=== PATIENT | female | born 1970 | race American Indian/Alaskan Native ===

== ENCOUNTER 2020-05-06 11:32 | Emergency (ER) | payer OTHER ==
--- NOTE | 2020-05-06 11:53 | Emergency Department Report ---
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 She states she felt hot all over and then had a syncopal episode. She has been having persistent nausea for the last week. This morning she had one episode of vomiting and took Zofran 8 mg ODT. She denies headache, palpitations, blurred vision, chest pain, shortness of breath, focal weakness, focal numbness, calf tenderness, leg edema, history of PE/DVT. Patient did travel to [place] several weeks ago. Her medications include Cymbalta, lisinopril/HCTZ, aspirin 81 mg daily, atorvastatin, and Ozempic. - Related Data Allergies/Adverse Reactions: Allergies erythromycin base [From Erythrocin] Allergy (Verified 05/06/20 12:11) Nausea hydromorphone [From Dilaudid] Allergy (Verified 05/06/20 12:10) Shortness of Breath Home Medications: Ambulatory Orders Promethazine [Phenergan] 25 mg PO Q6HR PRN #20 tab 05/06/20 ED Review of Systems ROS: Stated complaint: SYNCOPE Other details as noted in HPI Comment: All other systems reviewed and negative ED Past Medical Hx - Medications Home Medications: Home Medications Medication Instructions Recorded Confirmed Last Taken Type Promethazine [Phenergan] 25 mg PO Q6HR PRN #20 tab 05/06/20 Unknown Rx ED Physical Exam - Other Other exam information: General: No acute distress Head: Atraumatic Eyes: normal appearance, extraocular movements intact ENT: Moist mucous membranes Neck: Normal appearance, no midline tenderness Chest: Clear to auscultation bilaterally CV: Regular rate and rhythm Abdomen: Soft, normal bowel sounds, nontender, nondistended, no rebound or guarding Back: Normal inspection, no calf tenderness or leg edema Extremity: Normal inspection, full range of motion Neuro: Alert O x 3, no facial asymmetry, speech clear, no gross motor sensory deficit, [id number] function. NIH stroke scale 0 Psych: Appropriate behavior Skin: No rash ED Course Vital Signs 05/06/20 05/06/20 05/06/20 11:45 11:52 11:59 Temperature 98.3 F Pulse Rate 82 114 H Respiratory 20 16 18 Rate Blood Pressure 131/77 Blood Pressure 131/77 [Right] O2 Sat by Pulse 100 100 Oximetry 05/06/20 05/06/20 05/06/20 12:00 12:16 12:30 Temperature Pulse Rate 65 72 85 Respiratory 15 12 20 Rate Blood Pressure 132/80 123/80 123/80 Blood Pressure [Right] O2 Sat by Pulse 100 99 100 Oximetry 05/06/20 05/06/20 05/06/20 12:46 13:00 13:16 Temperature Pulse Rate 73 73 81 Respiratory 17 18 12 Rate Blood Pressure 123/80 123/80 113/65 Blood Pressure [Right] O2 Sat by Pulse 100 99 99 Oximetry 05/06/20 05/06/20 05/06/20 13:30 13:46 14:00 Temperature Pulse Rate 75 73 75 Respiratory 16 17 14 Rate Blood Pressure 113/65 113/65 113/65 Blood Pressure [Right] O2 Sat by Pulse 100 77 L 99 Oximetry ED Medical Decision Making - Lab Data Result diagrams: 05/06/20 Unknown 05/06/20 12:28 Lab Results 05/06/20 05/06/20 05/06/20 Range/Units 11:43 12:28 12:28 WBC (4.5-11.0) K/mm3 RBC (3.65-5.03) M/mm3 Hgb (10.1-14.3) gm/dl Hct (30.3-42.9) % MCV (79-97) fl MCH (28-32) pg MCHC (30-34) % RDW (13.2-15.2) % Plt Count (140-440) K/mm3 Lymph % (Auto) (13.4-35.0) % Lassen % (Auto) (0.0-7.3) % Eos % (Auto) (0.0-4.3) % Baso % (Auto) (0.0-1.8) % Lymph # (Auto) (1.2-5.4) K/mm3 Lassen # (Auto) (0.0-0.8) K/mm3 Eos # (Auto) (0.0-0.4) K/mm3 Baso # (Auto) (0.0-0.1) K/mm3 Seg Neutrophils % (40.0-70.0) % Seg Neutrophils # (1.8-7.7) K/mm3 PT 12.2 (12.2-14.9) Sec. INR 0.91 (0.87-1.13) D-Dimer < 135 (0-234) ng/mlDDU Sodium 137 (137-145) mmol/L Potassium 4.3 (3.6-5.0) mmol/L Chloride 102.5 (98-107) mmol/L Carbon Dioxide 29 (22-30) mmol/L Anion Gap 10 mmol/L BUN 10 (7-17) mg/dL Creatinine 0.7 (0.6-1.2) mg/dL Estimated GFR > 60 ml/min BUN/Creatinine Ratio 14 % Glucose 102 H (65-100) mg/dL POC Glucose 114 H (70-105) mg/dL Calcium 9.5 (8.4-10.2) mg/dL Troponin T < 0.010 (0.00-0.029) ng/mL HCG, Qual (Negative) 05/06/20 05/06/20 Range/Units 12:28 Unknown WBC 7.1 (4.5-11.0) K/mm3 RBC 4.28 (3.65-5.03) M/mm3 Hgb 13.1 (10.1-14.3) gm/dl Hct 38.5 (30.3-42.9) % MCV 90 (79-97) fl MCH 31 (28-32) pg MCHC 34 (30-34) % RDW 13.6 (13.2-15.2) % Plt Count 216 (140-440) K/mm3 Lymph % (Auto) 22.9 (13.4-35.0) % Lassen % (Auto) 6.6 (0.0-7.3) % Eos % (Auto) 6.3 H (0.0-4.3) % Baso % (Auto) 0.6 (0.0-1.8) % Lymph # (Auto) 1.6 (1.2-5.4) K/mm3 Lassen # (Auto) 0.5 (0.0-0.8) K/mm3 Eos # (Auto) 0.4 (0.0-0.4) K/mm3 Baso # (Auto) 0.0 (0.0-0.1) K/mm3 Seg Neutrophils % 63.6 (40.0-70.0) % Seg Neutrophils # 4.5 (1.8-7.7) K/mm3 PT (12.2-14.9) Sec. INR (0.87-1.13) D-Dimer (0-234) ng/mlDDU Sodium (137-145) mmol/L Potassium (3.6-5.0) mmol/L Chloride (98-107) mmol/L Carbon Dioxide (22-30) mmol/L Anion Gap mmol/L BUN (7-17) mg/dL Creatinine (0.6-1.2) mg/dL Estimated GFR ml/min BUN/Creatinine Ratio % Glucose (65-100) mg/dL POC Glucose (70-105) mg/dL Calcium (8.4-10.2) mg/dL Troponin T (0.00-0.029) ng/mL HCG, Qual Negative (Negative) - EKG Data -: EKG Interpreted by [facility] EKG shows normal: sinus rhythm, ST-T waves (no stemi) Rate: normal - EKG Data When compared to previous EKG there are: previous EKG unavailable - Radiology Data Radiology results: report reviewed CHEST 1 VIEW INDICATION / CLINICAL INFORMATION: Syncope. COMPARISON: None available. FINDINGS: SUPPORT DEVICES: None. HEART / MEDIASTINUM: No significant abnormality. LUNGS / PLEURA: No significant pulmonary or pleural abnormality.. No pneumothorax. ADDITIONAL FINDINGS: No significant additional findings. IMPRESSION: 1. No acute findings. CT BRAIN: 05/06/2020 INDICATION / CLINICAL INFORMATION: syncope. COMPARISON: None available. FINDINGS: BRAIN/INTRACRANIAL STRUCTURES: Unenhanced CT images of the brain demonstrate no evidence of acute intracranial abnormality. Ventricles and sulci are normal in size and shape. There is no evidence of acute ischemic injury, hemorrhage, or mass. There are no abnormal extra- axial fluid collections. EXTRACRANIAL STRUCTURES: Unremarkable. IMPRESSION: Negative unenhanced CT of the brain. - Medical Decision Making 49-year-old female presents to the hospital with syncopal episode. Patient states she felt lightheaded and hot prior to syncopal episode without any other symptoms. Symptoms appear to be vasovagal. ED work-up revealed normal EKG without ischemic findings or arrhythmia, negative D-dimer but low pretest probability for pulmonary embolism, normal vital signs with negative orthostatics, and no signs of acute infection or other lab abnormality. CT head also unremarkable with nonfocal neurologic exam. patient received additional medication for persistent nausea without vomiting. Patient tolerated ambulation the ED prior to discharge. She be discharged with PMD follow-up Patient treated in the ED with Reglan, Benadryl, and 1 L normal saline Critical Care Time: No Critical care attestation.: If time is entered above; I have spent that time in minutes in the direct care of this critically ill patient, excluding procedure time. ED Disposition Clinical Impression: Syncope, Lupus, History of CVA (cerebrovascular accident) without residual deficits, Diabetes, Hypertension, Nausea Disposition: - TO HOME OR SELFCARE Is pt being admited?: No Does the pt Need Aspirin: No Condition: Stable Instructions: Syncope (ED), Diabetes Mellitus Type 2 in Adults (ED), Hypertension (ED) Additional Instructions: Take the medication as prescribed. Follow-up with your doctor or doctor/clinic provided. Return if symptoms worsen as indicated by your discharge instructions. Prescriptions: Promethazine [Phenergan] 25 mg PO Q6HR PRN #20 tab PRN Reason: Nausea Referrals: SUSHANT MEDEL MD [Primary Care Provider] - 3-5 Days Time of Disposition: 17:13 Medical Decision Making - Lab Data Result Diagrams: 05/06/20 Unknown 05/06/20 12:28 Labs: 05/06/20 17:10 Lab Results 05/06/20 05/06/20 05/06/20 Range/Units 11:43 12:28 12:28 WBC (4.5-11.0) K/mm3 RBC (3.65-5.03) M/mm3 Hgb (10.1-14.3) gm/dl Hct (30.3-42.9) % MCV (79-97) fl MCH (28-32) pg MCHC (30-34) % RDW (13.2-15.2) % Plt Count (140-440) K/mm3 Lymph % (Auto) (13.4-35.0) % Lassen % (Auto) (0.0-7.3) % Eos % (Auto) (0.0-4.3) % Baso % (Auto) (0.0-1.8) % Lymph # (Auto) (1.2-5.4) K/mm3 Lassen # (Auto) (0.0-0.8) K/mm3 Eos # (Auto) (0.0-0.4) K/mm3 Baso # (Auto) (0.0-0.1) K/mm3 Seg Neutrophils % (40.0-70.0) % Seg Neutrophils # (1.8-7.7) K/mm3 PT 12.2 (12.2-14.9) Sec. INR 0.91 (0.87-1.13) D-Dimer < 135 (0-234) ng/mlDDU Sodium 137 (137-145) mmol/L Potassium 4.3 (3.6-5.0) mmol/L Chloride 102.5 (98-107) mmol/L Carbon Dioxide 29 (22-30) mmol/L Anion Gap 10 mmol/L BUN 10 (7-17) mg/dL Creatinine 0.7 (0.6-1.2) mg/dL Estimated GFR > 60 ml/min BUN/Creatinine Ratio 14 % Glucose 102 H (65-100) mg/dL POC Glucose 114 H (70-105) mg/dL Calcium 9.5 (8.4-10.2) mg/dL Troponin T < 0.010 (0.00-0.029) ng/mL HCG, Qual (Negative) 05/06/20 05/06/20 Range/Units 12:28 Unknown WBC 7.1 (4.5-11.0) K/mm3 RBC 4.28 (3.65-5.03) M/mm3 Hgb 13.1 (10.1-14.3) gm/dl Hct 38.5 (30.3-42.9) % MCV 90 (79-97) fl MCH 31 (28-32) pg MCHC 34 (30-34) % RDW 13.6 (13.2-15.2) % Plt Count 216 (140-440) K/mm3 Lymph % (Auto) 22.9 (13.4-35.0) % Lassen % (Auto) 6.6 (0.0-7.3) % Eos % (Auto) 6.3 H (0.0-4.3) % Baso % (Auto) 0.6 (0.0-1.8) % Lymph # (Auto) 1.6 (1.2-5.4) K/mm3 Lassen # (Auto) 0.5 (0.0-0.8) K/mm3 Eos # (Auto) 0.4 (0.0-0.4) K/mm3 Baso # (Auto) 0.0 (0.0-0.1) K/mm3 Seg Neutrophils % 63.6 (40.0-70.0) % Seg Neutrophils # 4.5 (1.8-7.7) K/mm3 PT (12.2-14.9) Sec. INR (0.87-1.13) D-Dimer (0-234) ng/mlDDU Sodium (137-145) mmol/L Potassium (3.6-5.0) mmol/L Chloride (98-107) mmol/L Carbon Dioxide (22-30) mmol/L Anion Gap mmol/L BUN (7-17) mg/dL Creatinine (0.6-1.2) mg/dL Estimated GFR ml/min BUN/Creatinine Ratio % Glucose (65-100) mg/dL POC Glucose (70-105) mg/dL Calcium (8.4-10.2) mg/dL Troponin T (0.00-0.029) ng/mL HCG, Qual Negative (Negative) - EKG Data -: EKG Interpreted by [facility] EKG shows normal: sinus rhythm Rate: normal - PERC (PE Decision Criteria) Heart Rate < 100: (1) Yes O2 Sat on Room Air > .94%: (0) No No Prior History pf DVT/PE: (0) No No Recent Trauma or Surgery: (0) No Hemoptysis: (0) No No Exogenous Estrogen: (0) No No Clinical Signs Suggesting DVT: (0) No Age < 50: No
[2020-05-06] MEDS ORDERED: METOCLOPRAMIDE 10 MG/2 ML INJ IV ONE (12:12)
[2020-05-06] MEDS ORDERED: diphenhydrAMINE 50 MG/ML VIAL IV ONE (12:12)
[2020-05-06] MEDS ORDERED: SODIUM CHLORIDE 0.9% 1000 ML 1,000 ML IV ONE (12:12)
[2020-05-06 13:09] LABS: Basophils % (Auto) 0.6 % (0.0-1.8); Eosinophils # (Auto) 0.4 K/mm3 (0.0-0.4); Eosinophils % (Auto) 6.3 % (0.0-4.3); Hematocrit 38.5 % (30.3-42.9); Hemoglobin 13.1 gm/dl (10.1-14.3); Lymphocytes # (Auto) 1.6 K/mm3 (1.2-5.4); Lymphocytes % (Auto) 22.9 % (13.4-35.0); Mean Corpuscular HGB Conc 34 % (30-34); Mean Corpuscular Volume 90 fl (79-97); Monocytes # (Auto) 0.5 K/mm3 (0.0-0.8); Monocytes % (Auto) 6.6 % (0.0-7.3); Platelet Count 216 K/mm3 (140-440); Red Blood Count 4.28 M/mm3 (3.65-5.03); Red Cell Distribution Width 13.6 % (13.2-15.2)
[2020-05-06 13:18] LABS: INR 0.91 (0.87-1.13)
[2020-05-06 13:22] LABS: Blood Urea Nitrogen 10 mg/dL (7-17); Calcium 9.5 mg/dL (8.4-10.2); Hemolysis Index 11
[2020-05-06 13:34] LABS: BUN/Creatinine Ratio 14
[2020-05-06 14:11] VITALS: BP 113/65
--- NOTE | 2020-05-06 14:44 | Cat Scan Report ---
CT BRAIN: 05/06/2020 INDICATION / CLINICAL INFORMATION: syncope. COMPARISON: None available. FINDINGS: BRAIN/INTRACRANIAL STRUCTURES: Unenhanced CT images of the brain demonstrate no evidence of acute int racranial abnormality. Ventricles and sulci are normal in size and shape. There is no evidence of acute ischemic injury, hemorrhage, or mass. There are no abnormal extra-axial fluid collections. EXTRACRANIAL STRUCTURES: Unremarkable. IMPRESSION: Negative unenhanced CT of the brain. All CT scans at this location are performed using dose reduction to ALARA by means of automated expos ure control. Signer Name: Stone Cifuentes MD Signed: 05/06/2020 2:40 PM Workstation Name: [id number]
--- NOTE | 2020-05-06 16:03 | XRay Report ---
CHEST 1 VIEW INDICATION / CLINICAL INFORMATION: Syncope. COMPARISON: None available. FINDINGS: SUPPORT DEVICES: None. HEART / MEDIASTINUM: No significant abnormality. LUNGS / PLEURA: No significant pulmonary or pleural abnormality.. No pneumothorax. ADDITIONAL FINDINGS: No significant additional findings. IMPRESSION: 1. No acute findings. Signer Name: Remi Alaniz MD Signed: 05/06/2020 3:59 PM Workstation Name: [id number]
[2020-05-06] MEDS ORDERED: ONDANSETRON 4 MG/2 ML INJ IV ONE (16:33)
== END 2020-05-06 17:55 | disposition home or self-care (01) ==
LOC: ED 11:32
DX: R55 Syncope and collapse (principal); M32.9 Systemic lupus erythematosus, unspecified; E11.9 Type 2 diabetes mellitus without complications; I10 Essential (primary) hypertension; R11.0 Nausea; Z86.73 Personal history of transient ischemic attack (TIA), and cerebral infarction without residual deficits; Z79.899 Other long term (current) drug therapy; Z88.8 Allergy status to other drugs, medicaments and biological substances
CPT/HCPCS: 36415; 70450; 71045; 80048; 82962; 84484; 84703; 85025; 85379; 85610; 96361; 96374; 96375; 99285; J1200; J2405; J2765; J7030; 93005